=== PATIENT | male | born 1940 | race Caucasian/White ===

== ENCOUNTER 2017-05-29 05:56 | Emergency (ER) | payer MEDICARE, OTHER ==
[~2017-05-29] VITALS: Ht 180.3 cm; Wt 74.8 kg
[~2017-05-29 05:56] MED LIST: ASPI325 PO; DONE10 PO; JALYN 0.5-0.41 EACH; MULTIPLE SUPPLEMENTS
[2017-05-29] MEDS ORDERED: PRAV20 PO (06:19)
[2017-05-29] MEDS ORDERED: Avapro300 MG PO (06:19)
[2017-05-29] MEDS ORDERED: MEMA10 PO (06:19)
[2017-05-29] MEDS ORDERED: LINZESS72 MCG PO (06:20)
[2017-05-29 06:35] LABS: BASOPHILS ABSOLUTE AUTO 0.04 K/mm3 (0.00-0.23); BASOPHILS PERCENT AUTO 1 % (0-2); EOSINOPHILS ABSOLUTE AUTO 0.13 K/mm3 (0.00-0.68); EOSINOPHILS PERCENT AUTO 2 % (0-6); Hematocrit 40.1 % (37.0-53.0); IMMATURE GRAN ABSOLUTE AUTO 0.02 K/mm3 (0.00-0.10); IMMATURE GRAN PERCENT AUTO 0 % (0-1); LYMPHOCYTES ABSOLUTE AUTO 2.15 K/mm3 (0.84-5.20); LYMPHOCYTES PERCENT AUTO 38 % (21-46); MONOCYTES ABSOLUTE AUTO 0.56 K/mm3 (0.16-1.47); MONOCYTES PERCENT AUTO 10 % (4-13); Mean Corpuscular HGB Conc 32.4 g/dL (31.5-36.5); Mean Corpuscular Volume 96 fL (80-100); Mean Platelet Volume 9.8 fL (9.1-12.4); NEUTROPHILS ABSOLUTE AUTO 2.73 K/mm3 (1.96-9.15); NEUTROPHILS PERCENT AUTO 49 % (41-73); Platelet Count 180 K/mm3 (150-400); RDW Coefficient Variation 13.1 % (11.7-14.2); RDW Standard Deviation 46.5 fL (35.1-46.3); White Blood Cell Count 5.63 K/mm3 (4.00-11.30)
[2017-05-29 06:39] LABS: Source, Urine Catheter
[2017-05-29 06:44] LABS: Bilirubin, Urine Neg (Neg); Blood, Urine Neg (Neg); Glucose Qualitative, Urine Neg (Neg); Ketones, Urine Neg (Neg); Leukocyte Esterase, Urine Neg (Neg); Nitrite, Urine Neg (Neg); Protein, Urine Neg (Neg); Specific Gravity, Urine 1.015 (1.003-1.022); Urobilinogen, Urine NORM (Normal)
[2017-05-29 06:49] LABS: Alanine Aminotransfer (ALT/SGP 20 U/L (12-78); Albumin, Blood 3.7 g/dL (3.4-5.0); Alk Phos 77 U/L (50-136); Anion Gap 8 mmol/L (6-16); Aspartate Aminotrans (AST/SGOT 22 U/L (12-37); Bilirubin, Total 0.4 mg/dL (0.1-1.0); Blood Urea Nitrogen 12 mg/dL (8-24); Bun/Creatinine Ratio 12.8 (12.0-20.0); CO2, Blood 30 mmol/L (21-32); Chloride, Blood 106 mmol/L (98-108); Creatinine, Blood 0.94 mg/dL (0.60-1.20); Globulin, Blood 3.7 g/dL (2.2-4.0); Glomerular Filtration Rate >60 (60-); Glucose, Blood 106 mg/dL (70-99); Potassium, Blood 3.9 mmol/L (3.5-5.5); Sodium, Blood 144 mmol/L (136-145); Total Protein, Blood 7.4 g/dL (6.4-8.2); Troponin I <0.015 ng/mL (0.000-0.040)
[2017-05-29 06:51] LABS: Appearance, Urine Clear (Clear); Color, Urine Yellow (P-Yellow)
== END 2017-05-29 09:00 | disposition home or self-care (01) ==
LOC: ER 05:56
PROVIDERS: Emergency Medicine
DX: T65.891A Toxic effect of other specified substances, accidental (unintentional), initial encounter (principal); G92 Toxic encephalopathy; R26.81 Unsteadiness on feet; Z79.82 Long term (current) use of aspirin; Z79.899 Other long term (current) drug therapy
CPT/HCPCS: 70450; 80053; 81003; 84484; 85025; 93005; 93010; 99284

== ENCOUNTER 2017-08-09 13:55 | Emergency (ER) | payer MEDICARE, OTHER ==
[~2017-08-09] VITALS: Ht 175.3 cm; Wt 68.0 kg
[~2017-08-09 13:55] MED LIST changes: +Avapro300 MG PO; +LINZESS72 MCG PO; +MEMA10 PO; +PRAV20 PO
[2017-08-09] MEDS ORDERED: TAMS.4ER PO (14:12)
[2017-08-09] MEDS ORDERED: DUTA.5 PO (14:12)
[2017-08-09] MEDS ORDERED: PRAV20 PO (14:12)
[2017-08-09] MEDS ORDERED: MEMANTINE HCL10 MG PO (14:13)
[2017-08-09] MEDS ORDERED: LINZESS290 MCG PO (14:14)
[2017-08-09] MEDS ORDERED: TOLT4 PO (14:23)
[2017-08-09 14:46] LABS: BASOPHILS ABSOLUTE AUTO 0.03 K/mm3 (0.00-0.23); BASOPHILS PERCENT AUTO 1 % (0-2); EOSINOPHILS ABSOLUTE AUTO 0.13 K/mm3 (0.00-0.68); EOSINOPHILS PERCENT AUTO 2 % (0-6); Hematocrit 40.2 % (37.0-53.0); IMMATURE GRAN ABSOLUTE AUTO 0.03 K/mm3 (0.00-0.10); IMMATURE GRAN PERCENT AUTO 1 % (0-1); LYMPHOCYTES ABSOLUTE AUTO 2.34 K/mm3 (0.84-5.20); LYMPHOCYTES PERCENT AUTO 43 % (21-46); MONOCYTES ABSOLUTE AUTO 0.48 K/mm3 (0.16-1.47); MONOCYTES PERCENT AUTO 9 % (4-13); Mean Corpuscular HGB 31.3 pg (26.0-34.0); Mean Corpuscular HGB Conc 32.3 g/dL (31.5-36.5); Mean Corpuscular Volume 97 fL (80-100); Mean Platelet Volume 9.6 fL (9.1-12.4); NEUTROPHILS ABSOLUTE AUTO 2.45 K/mm3 (1.96-9.15); NEUTROPHILS PERCENT AUTO 45 % (41-73); Platelet Count 212 K/mm3 (150-400); RDW Coefficient Variation 13.2 % (11.7-14.2); Red Blood Cell Count 4.16 M/mm3 (4.30-5.90); White Blood Cell Count 5.46 K/mm3 (4.00-11.30)
[2017-08-09 15:19] LABS: Alanine Aminotransfer (ALT/SGP 22 U/L (12-78); Albumin, Blood 3.9 g/dL (3.4-5.0); Alk Phos 87 U/L (50-136); Anion Gap 5 mmol/L (6-16); Aspartate Aminotrans (AST/SGOT 24 U/L (12-37); Bilirubin, Total 0.4 mg/dL (0.1-1.0); Blood Urea Nitrogen 8 mg/dL (8-24); Bun/Creatinine Ratio 8.6 (12.0-20.0); CO2, Blood 30 mmol/L (21-32); Calcium, Blood 9.4 mg/dL (8.5-10.1); Chloride, Blood 109 mmol/L (98-108); Creatinine, Blood 0.93 mg/dL (0.60-1.20); Glomerular Filtration Rate >60 (60-); Glucose, Blood 88 mg/dL (70-99); Potassium, Blood 3.7 mmol/L (3.5-5.5); Sodium, Blood 144 mmol/L (136-145); Total Protein, Blood 7.9 g/dL (6.4-8.2); Troponin I <0.015 ng/mL (0.000-0.040)
== END 2017-08-09 18:38 | disposition home or self-care (01) ==
LOC: ER 13:55
PROVIDERS: Emergency Medicine
DX: R03.0 Elevated blood-pressure reading, without diagnosis of hypertension (principal); Z79.899 Other long term (current) drug therapy
CPT/HCPCS: 36415; 71046; 80053; 84484; 85025; 93005; 93010; 99283

== ENCOUNTER 2017-11-20 11:39 | Emergency (ER) | payer MEDICARE, OTHER ==
[~2017-11-20] VITALS: Ht 180.3 cm; Wt 77.1 kg
[~2017-11-20 11:39] MED LIST changes: +DUTA.5 PO; +LINZESS290 MCG PO; +MEMANTINE HCL10 MG PO; +TAMS.4ER PO; +TOLT4 PO
[2017-11-20 12:15] LABS: BASOPHILS ABSOLUTE AUTO 0.02 K/mm3 (0.00-0.23); BASOPHILS PERCENT AUTO 0 % (0-2); EOSINOPHILS ABSOLUTE AUTO 0.05 K/mm3 (0.00-0.68); EOSINOPHILS PERCENT AUTO 1 % (0-6); Hematocrit 40.6 % (37.0-53.0); Hemoglobin 13.4 g/dL (13.5-17.5); IMMATURE GRAN ABSOLUTE AUTO 0.02 K/mm3 (0.00-0.10); IMMATURE GRAN PERCENT AUTO 0 % (0-1); LYMPHOCYTES ABSOLUTE AUTO 1.89 K/mm3 (0.84-5.20); LYMPHOCYTES PERCENT AUTO 31 % (21-46); MONOCYTES ABSOLUTE AUTO 0.43 K/mm3 (0.16-1.47); MONOCYTES PERCENT AUTO 7 % (4-13); Mean Corpuscular HGB 31.1 pg (26.0-34.0); Mean Corpuscular Volume 94 fL (80-100); Mean Platelet Volume 9.6 fL (9.1-12.4); NEUTROPHILS ABSOLUTE AUTO 3.77 K/mm3 (1.96-9.15); NEUTROPHILS PERCENT AUTO 61 % (41-73); Platelet Count 199 K/mm3 (150-400); RDW Coefficient Variation 13.2 % (11.7-14.2); RDW Standard Deviation 45.8 fL (35.1-46.3); Red Blood Cell Count 4.31 M/mm3 (4.30-5.90); White Blood Cell Count 6.18 K/mm3 (4.00-11.30)
[2017-11-20 12:37] LABS: Bilirubin, Urine Neg (Neg); Blood, Urine Neg (Neg); Glucose Qualitative, Urine Neg (Neg); Ketones, Urine Neg (Neg); Leukocyte Esterase, Urine Neg (Neg); Nitrite, Urine Neg (Neg); Protein, Urine Neg (Neg); Urobilinogen, Urine NORM (Normal)
[2017-11-20 12:37] LABS: Alanine Aminotransfer (ALT/SGP 16 U/L (12-78); Albumin, Blood 3.6 g/dL (3.4-5.0); Albumin/Globulin Ratio 1.1 (0.8-1.8); Alk Phos 76 U/L (50-136); Anion Gap 7 mmol/L (6-16); Aspartate Aminotrans (AST/SGOT 17 U/L (12-37); Bilirubin, Total 0.6 mg/dL (0.1-1.0); Blood Urea Nitrogen 11 mg/dL (8-24); Bun/Creatinine Ratio 11.5 (12.0-20.0); CO2, Blood 28 mmol/L (21-32); Chloride, Blood 109 mmol/L (98-108); Creatinine, Blood 0.95 mg/dL (0.60-1.20); Globulin, Blood 3.4 g/dL (2.2-4.0); Glomerular Filtration Rate >60 (60-); Glucose, Blood 90 mg/dL (70-99); Potassium, Blood 4.1 mmol/L (3.5-5.5); Sodium, Blood 144 mmol/L (136-145)
[2017-11-20 12:48] LABS: Appearance, Urine Clear (Clear); Color, Urine Yellow (P-Yellow)
== END 2017-11-20 14:04 | disposition home or self-care (01) ==
LOC: ER 11:39
PROVIDERS: Emergency Medicine; Internal Medicine
DX: K59.00 Constipation, unspecified (principal); F03.90 Unspecified dementia, unspecified severity, without behavioral disturbance, psychotic disturbance, mood disturbance, and anxiety; I10 Essential (primary) hypertension; Z79.899 Other long term (current) drug therapy
CPT/HCPCS: 51798; 71046; 74022; 80053; 81003; 85025; 93005; 93010; 96360; 99284-25; J7030

== ENCOUNTER 2019-03-28 10:44 | Emergency (ER) | payer MEDICARE, OTHER ==
[~2019-03-28] VITALS: Ht 177.8 cm; Wt 63.5 kg
[2019-03-28 12:15] LABS: Source, Urine Catheter
[2019-03-28 12:18] LABS: Bilirubin, Urine Neg (Neg); Blood, Urine Neg (Neg); Glucose Qualitative, Urine Neg (Neg); Ketones, Urine 1+ (Neg); Leukocyte Esterase, Urine Neg (Neg); Nitrite, Urine Neg (Neg); Protein, Urine Neg (Neg); Specific Gravity, Urine 1.015 (1.003-1.022); Urobilinogen, Urine NORM (Normal)
[2019-03-28 12:19] LABS: BASOPHILS ABSOLUTE AUTO 0.04 K/mm3 (0.00-0.23); BASOPHILS PERCENT AUTO 0 % (0-2); EOSINOPHILS PERCENT AUTO 0 % (0-6); Hematocrit 38.2 % (37.0-53.0); Hemoglobin 12.5 g/dL (13.5-17.5); IMMATURE GRAN ABSOLUTE AUTO 0.03 K/mm3 (0.00-0.10); IMMATURE GRAN PERCENT AUTO 0 % (0-1); LYMPHOCYTES ABSOLUTE AUTO 0.85 K/mm3 (0.84-5.20); LYMPHOCYTES PERCENT AUTO 10 % (21-46); MONOCYTES ABSOLUTE AUTO 0.78 K/mm3 (0.16-1.47); MONOCYTES PERCENT AUTO 9 % (4-13); Mean Corpuscular HGB 31.6 pg (26.0-34.0); Mean Corpuscular HGB Conc 32.7 g/dL (31.5-36.5); Mean Corpuscular Volume 97 fL (80-100); Mean Platelet Volume 9.9 fL (9.1-12.4); NEUTROPHILS ABSOLUTE AUTO 7.28 K/mm3 (1.96-9.15); NEUTROPHILS PERCENT AUTO 81 % (41-73); Platelet Count 188 K/mm3 (150-400); RDW Coefficient Variation 13.1 % (11.7-14.2); RDW Standard Deviation 46.5 fL (35.1-46.3); Red Blood Cell Count 3.95 M/mm3 (4.30-5.90); White Blood Cell Count 8.98 K/mm3 (4.00-11.30)
[2019-03-28 12:28] LABS: Appearance, Urine Clear (Clear); Color, Urine Yellow (P-Yellow)
[2019-03-28 12:41] LABS: Alanine Aminotransfer (ALT/SGP 22 U/L (12-78); Albumin, Blood 3.7 g/dL (3.4-5.0); Alk Phos 88 U/L (50-136); Anion Gap 4 mmol/L (6-16); Aspartate Aminotrans (AST/SGOT 24 U/L (12-37); Bilirubin, Total 0.5 mg/dL (0.1-1.0); Blood Urea Nitrogen 14 mg/dL (8-24); Bun/Creatinine Ratio 13.2 (12.0-20.0); CO2, Blood 26 mmol/L (21-32); Chloride, Blood 110 mmol/L (98-108); Creatinine, Blood 1.06 mg/dL (0.60-1.20); Globulin, Blood 3.6 g/dL (2.2-4.0); Glomerular Filtration Rate >60 (60-); Glucose, Blood 130 mg/dL (70-99); Potassium, Blood 4.1 mmol/L (3.5-5.5); Sodium, Blood 140 mmol/L (136-145); Total Protein, Blood 7.3 g/dL (6.4-8.2)
== END 2019-03-28 13:45 | disposition home or self-care (01) ==
LOC: ER 10:44
PROVIDERS: Emergency Medicine
DX: F03.90 Unspecified dementia, unspecified severity, without behavioral disturbance, psychotic disturbance, mood disturbance, and anxiety (principal); Z79.899 Other long term (current) drug therapy; W19.XXXA Unspecified fall, initial encounter
CPT/HCPCS: 51701; 80053; 81003; 85025; 99284-25

== ENCOUNTER 2019-06-04 12:32 | Observation (INO) | payer MEDICARE, OTHER ==
[~2019-06-04] VITALS: Ht 172.7 cm; Wt 55.3 kg
[2019-06-04] MEDS ORDERED: OXYB5 PO (12:46)
[2019-06-04] MEDS ORDERED: AMLODIPINE BESY10 MG PO (12:46)
[2019-06-04] MEDS ORDERED: PROZAC40 MG PO (12:48)
[2019-06-04 13:22] LABS: BASOPHILS ABSOLUTE AUTO 0.02 K/mm3 (0.00-0.23); BASOPHILS PERCENT AUTO 0 % (0-2); EOSINOPHILS ABSOLUTE AUTO 0.01 K/mm3 (0.00-0.68); EOSINOPHILS PERCENT AUTO 0 % (0-6); Hemoglobin 12.9 g/dL (13.5-17.5); IMMATURE GRAN ABSOLUTE AUTO 0.05 K/mm3 (0.00-0.10); IMMATURE GRAN PERCENT AUTO 1 % (0-1); LYMPHOCYTES ABSOLUTE AUTO 1.13 K/mm3 (0.84-5.20); LYMPHOCYTES PERCENT AUTO 13 % (21-46); MONOCYTES ABSOLUTE AUTO 0.73 K/mm3 (0.16-1.47); MONOCYTES PERCENT AUTO 8 % (4-13); Mean Corpuscular HGB 31.7 pg (26.0-34.0); Mean Corpuscular HGB Conc 33.1 g/dL (31.5-36.5); Mean Corpuscular Volume 96 fL (80-100); NEUTROPHILS ABSOLUTE AUTO 7.09 K/mm3 (1.96-9.15); NEUTROPHILS PERCENT AUTO 79 % (41-73); Platelet Count 237 K/mm3 (150-400); RDW Coefficient Variation 12.9 % (11.7-14.2); RDW Standard Deviation 45.5 fL (35.1-46.3); Red Blood Cell Count 4.07 M/mm3 (4.30-5.90); White Blood Cell Count 9.03 K/mm3 (4.00-11.30)
[2019-06-04 13:32] LABS: Alanine Aminotransfer (ALT/SGP 23 U/L (12-78); Albumin, Blood 3.5 g/dL (3.4-5.0); Albumin/Globulin Ratio 0.9 (0.8-1.8); Alk Phos 89 U/L (50-136); Anion Gap 4 mmol/L (6-16); Aspartate Aminotrans (AST/SGOT 22 U/L (12-37); Bilirubin, Total 0.4 mg/dL (0.1-1.0); Blood Urea Nitrogen 16 mg/dL (8-24); Bun/Creatinine Ratio 15.1 (12.0-20.0); CO2, Blood 31 mmol/L (21-32); Calcium, Blood 9.6 mg/dL (8.5-10.1); Chloride, Blood 106 mmol/L (98-108); Creatinine, Blood 1.06 mg/dL (0.60-1.20); Globulin, Blood 3.7 g/dL (2.2-4.0); Glomerular Filtration Rate >60 (60-); Glucose, Blood 94 mg/dL (70-99); Sodium, Blood 141 mmol/L (136-145); Total Protein, Blood 7.2 g/dL (6.4-8.2); Troponin I <0.015 ng/mL (0.000-0.040)
[2019-06-04 14:48] LABS: Source, Urine Voided
[2019-06-04 14:50] LABS: Bilirubin, Urine Neg (Neg); Blood, Urine Neg (Neg); Glucose Qualitative, Urine Neg (Neg); Ketones, Urine 1+ (Neg); Leukocyte Esterase, Urine Neg (Neg); Nitrite, Urine Neg (Neg); Protein, Urine 1+ (Neg); Urobilinogen, Urine NORM (Normal)
[2019-06-04 15:01] LABS: Appearance, Urine Clear (Clear); Color, Urine Yellow (P-Yellow)
--- NOTE | 2019-06-04 18:30 | NUR ---
Assume [facility] Pt admitted from ER to room 325. Received report from KEVIN Lester. Pt arrived via stretcher and used slider sheet to slide over x 2 assist. Pt slow to respond, follows direction well, at bedside during arrival. Pt settled to room, call light near, bed in lowest position. Will report to oncoming night nurse.
--- NOTE | 2019-06-04 21:26 | NUR ---
XFER'D TO [id number] -REPORT GIVEN TO ASSUMING RN, AALIYAH; CALL PLACED TO MAXINE ([phone]) @ [phone].
--- NOTE | 2019-06-04 21:58 | NUR ---
ASSUMED CARE OF PT. TX'D OVER TO CLEAN BED. PT. REPOSITIONED FOR COMFORT. APPEARS TO BE RESTING COMFORTABLY IN BED, NO APPARENT DISTRESS NOTED. IV FLUIDS INFUDING. CALL LIGHT WITHIN REACH, SIDE RAILS UP X3, AND BED ALARM ON FOR SAFETY. WILL CONT TO MONITOR.
--- NOTE | 2019-06-05 04:55 | NUR ---
SHIFT SUMMARY- PT. NEW ADMISSION WITH INCREASING WEAKNESS AND FREQUENT FALLS AT HOME. PT. PLEASANTLY CONFUSED, INCONTINENT, ATTENDS IN PLACE. ATTEMPTED TO GET OOB 2X. BED ALARM SET FOR SAFETY. PT. C/O PAIN TO THE RT SIDE. MEDICATED W/TYLENOL PER EMAR WITH GOOD RELIEF. RESTED COMFORTABLY T/O THE SHIFT. NO APPARENT DISTRESS NOTED. CALL LIGHT WITHIN REACH, SIDE RAILS UP X2, AND BED IN LOW POSITION. WILL CONT TO MONITOR.
[2019-06-05 05:44] LABS: Alanine Aminotransfer (ALT/SGP 21 U/L (12-78); Albumin/Globulin Ratio 0.9 (0.8-1.8); Alk Phos 81 U/L (50-136); Anion Gap 6 mmol/L (6-16); Aspartate Aminotrans (AST/SGOT 23 U/L (12-37); Bilirubin, Total 0.4 mg/dL (0.1-1.0); Blood Urea Nitrogen 12 mg/dL (8-24); Bun/Creatinine Ratio 16.3 (12.0-20.0); CO2, Blood 27 mmol/L (21-32); Calcium, Blood 8.7 mg/dL (8.5-10.1); Chloride, Blood 108 mmol/L (98-108); Creatinine, Blood 0.74 mg/dL (0.60-1.20); Globulin, Blood 3.4 g/dL (2.2-4.0); Glomerular Filtration Rate >60 (60-); Glucose, Blood 85 mg/dL (70-99); Potassium, Blood 3.8 mmol/L (3.5-5.5); Sodium, Blood 141 mmol/L (136-145); Total Protein, Blood 6.4 g/dL (6.4-8.2)
--- NOTE | 2019-06-05 13:23 | NUR ---
Pt resting in chair eating his lunch upon arrival. Pt is A&OX1. Pt denies pain at this time. Pt difficult to understand and attempts to respond with one to two word sentences. Pt appears comfortable with no S/S of distress at this time. Spoke with Bedside RN Edmundo and discussed case. Pt requires assistance with transfers, is a 2 person assist with ambulation and walker, assistance with bathing, dressing, feeding, and is incontinent. Called and spoke with Pt's Myra. Engaged in therapeutic discussion regarding goals of care. Listened as Myra expresses concerns regarding her ability to care for Pt. Instructed Myra caremanagement will be in contact and can assist with these concerns. Discussed hospice and educated on hospice philosophy. Myra expresses interest with hospice and is agreeable with continued conversation when she arrives to hospital to visit Pt. Pt's medical history and comorbidities include: Advanced Dementia, Carotid Artery Stenosis, BPH, HTN,Hyperlipidemia, and Hypothyroidism. Pt unable to have meaningful conversation and has greater than 30 pound weight loss in the last year. PPS 40% Karnofsky 40% ADLs 6/6 FAST 7C Pt appears appropriate for hospice and would benefit from hospice intake nurse for further evaluation. Palliative Care will remain available.
--- NOTE | 2019-06-05 17:40 | NUR ---
PERMISSION THE PATIENT GAVE PERMISSION TO BE INVOLVED IN HIS CARE DURING CLINICAL TIME ON 06/06/2019
--- NOTE | 2019-06-05 17:57 | NUR ---
SUMMARY PT SITTING UP IN BED EATING DINNER, SPOUSE IS AT THE BEDSIDE, PT HAS BEEN CONFUSED AND DIFFICULT TO REDIRECT T/O THE DAY, ATTEMPTED TO GET OOB SEVERAL TIMES, BED ALARM ON FOR SAFETY, PT WORKED WITH PT/OT, HAS BEEN UP TO THE CHAIR SEVERAL TIMES, PT INCONTINENT OF BOWEL AND BLADDER, OFTEN NEEDS TO BE FED, PT HAS A RED AREA TO HIS COCCYX, FOAM PREVENTION DRESSING REMOVED DUE TO CONSTANT NEED TO BE CHANGED, BARRIER CREAM APPLIED IN PLACE OF IT, WILL CONT TO MONITOR
--- NOTE | 2019-06-05 23:59 | NUR ---
PT. VERY AGITATED ATTEMPTING TO GET OOB. PT. HAS HX OF MULTIPLE FALLS AT HOME. PT. ALSO DEVELOPED FEVER OF 102.3. NOTIFIED SRIKANTH WALLS CHEST PAIN COORDINATOR. SEE NEW ORDERS. WILL CONT TO MONITOR.
[2019-06-06 00:43] LABS: BASOPHILS ABSOLUTE AUTO 0.02 K/mm3 (0.00-0.23); BASOPHILS PERCENT AUTO 0 % (0-2); EOSINOPHILS ABSOLUTE AUTO 0.01 K/mm3 (0.00-0.68); EOSINOPHILS PERCENT AUTO 0 % (0-6); Hematocrit 37.8 % (37.0-53.0); Hemoglobin 12.5 g/dL (13.5-17.5); IMMATURE GRAN ABSOLUTE AUTO 0.05 K/mm3 (0.00-0.10); IMMATURE GRAN PERCENT AUTO 0 % (0-1); LYMPHOCYTES ABSOLUTE AUTO 1.58 K/mm3 (0.84-5.20); LYMPHOCYTES PERCENT AUTO 13 % (21-46); MONOCYTES ABSOLUTE AUTO 1.17 K/mm3 (0.16-1.47); MONOCYTES PERCENT AUTO 10 % (4-13); Mean Corpuscular HGB 31.2 pg (26.0-34.0); Mean Corpuscular HGB Conc 33.1 g/dL (31.5-36.5); Mean Corpuscular Volume 94 fL (80-100); Mean Platelet Volume 9.7 fL (9.1-12.4); NEUTROPHILS ABSOLUTE AUTO 9.34 K/mm3 (1.96-9.15); NEUTROPHILS PERCENT AUTO 77 % (41-73); Platelet Count 227 K/mm3 (150-400); RDW Coefficient Variation 12.2 % (11.7-14.2); RDW Standard Deviation 42.6 fL (35.1-46.3); Red Blood Cell Count 4.01 M/mm3 (4.30-5.90); White Blood Cell Count 12.17 K/mm3 (4.00-11.30)
[2019-06-06 01:01] LABS: Alanine Aminotransfer (ALT/SGP 22 U/L (12-78); Albumin, Blood 3.3 g/dL (3.4-5.0); Albumin/Globulin Ratio 0.9 (0.8-1.8); Alk Phos 81 U/L (50-136); Anion Gap 9 mmol/L (6-16); Aspartate Aminotrans (AST/SGOT 32 U/L (12-37); Bilirubin, Total 0.5 mg/dL (0.1-1.0); Blood Urea Nitrogen 16 mg/dL (8-24); Bun/Creatinine Ratio 16.4 (12.0-20.0); CO2, Blood 24 mmol/L (21-32); Chloride, Blood 103 mmol/L (98-108); Creatinine, Blood 0.98 mg/dL (0.60-1.20); Globulin, Blood 3.6 g/dL (2.2-4.0); Glomerular Filtration Rate >60 (60-); Glucose, Blood 117 mg/dL (70-99); Potassium, Blood 4.3 mmol/L (3.5-5.5); Sodium, Blood 136 mmol/L (136-145); Total Protein, Blood 6.9 g/dL (6.4-8.2)
--- NOTE | 2019-06-06 07:06 | NUR ---
SHIFT SUMMARY- PT. AGITATED LAST NIGHT, ATTEMPTING SEVERAL TIMES TO GET OOB. PT. IS AT HIGH RISK FOR FALLS WITH RECENT MULTIPLE FALLS AT HOME. SID VEST PLACED PER ORDER. PT. ALSO DEVELOPED TEMP OF 101.3-101.4 DURING THE NIGHT. MEDICATED WITH TYLENOL PER EMAR WITH MINIMAL EFFECT. PT. TEMP STILL ELEVATED. ORDER RECEIVED TO TREAT W/IBUPROFEN FOR BETTER EFFECT. PT. WAS ABLE TO FALL ASLEEP AFTER MEDICATION GIVEN, TEMP AND VSS. RECEIVED CALL FROM THIS AM WITH CONCERNS OF PT. HAVING THE SHAKES. STATED THOUGHT SX'S DUE TO MEDICATION PT. CURRENTLY ON AND REQUESTED FOR SCHEDULED MED TO BE HELD. INFORMED AM RN PT. REQUESTING FOR AM MEDS TO BE HELD DUE TO CONCERN OF POSSIBLE ALLERGY. PT. APPEARS TO BE RESTING COMFORTABLY IN BED, NO APPARENT DISTRESS NOTED.
--- NOTE | 2019-06-06 10:40 | NUR ---
Pt resting in bed and appears painful as evidenced by moaning, grimacing, and shaking of extremities. Pt is pleasantly confused. Spoke with Bedside RN Edmundo, discussed case, and reviewed medications. Edmundo will offer Pt pain medication. Called and left message with Pt's with request for a return phone call. Plan is to discuss goals of care further with when she visits Pt.
--- NOTE | 2019-06-06 11:25 | NUR ---
DHS WORKER CONNER WILDE FROM [facility] HERE TO SEE PT, CARD LEFT WITH NUMBER VOICE:[phone] CELL:[phone]
--- NOTE | 2019-06-06 17:02 | NUR ---
Pt resting in bed upon arrival. Pt's Myra at bedside expressing concerns with Pt showing mild tremors and red face. Myra expresses concerns and feels the pyridium may be causing these symptoms. Pyridium not given this morning per 's request. Suggested symptoms may be related to pain. Reviewed medications with KEVIN Pimentel and she will offer Ibuprofen. Discussed goals of care with Pt's Myra including hospice. Educated on hospice philosophy with V/U made by Myra. Myra is agreeable with hospice services upon discharge. Discussed placing Pt on comfort care as an option during Pt's hospital stay. Myra reports wishes to discuss further with daughter before making this decision. Received verbal consent from Myra to call daughter. Called and left a message with Dr Ku regarding Pt's symptoms, 's concerns and goals of care discussed. Palliative Care will call daugher and include in discussion regarding goals of care.
--- NOTE | 2019-06-06 17:33 | NUR ---
Called and spoke with Pt's daughter Michaela. Engaged in therapeutic discussion regarding goals of care. Michaela reports being in agreement for hospice upon discharge. Michaela reports she will have further discussions with her mom (Pt's Myra) regarding the option of placing Pt on comfort care during his hospital stay. Instructed on hospice agencies to choose from. Instructed to have bedside RN contact Palliative Care when she and Myra arrive tomorrow to visit. Palliative Care will remain available.
--- NOTE | 2019-06-06 17:47 | NUR ---
SUMMARY PT RESTING IN BED, RESTRAINTS REMAIN ON FOR SAFETY, PT PLEASANTLY CONFUSED, DOES NOT FOLLOW COMMANDS CONSISTENTLY, SPOUSE HAS BEEN IN TO VISIT SEVERAL TIMES, VSS, WILL CONT TO MONITOR
[2019-06-07 05:18] LABS: BASOPHILS ABSOLUTE AUTO 0.03 K/mm3 (0.00-0.23); BASOPHILS PERCENT AUTO 0 % (0-2); EOSINOPHILS ABSOLUTE AUTO 0.12 K/mm3 (0.00-0.68); EOSINOPHILS PERCENT AUTO 1 % (0-6); Hematocrit 35.2 % (37.0-53.0); Hemoglobin 11.7 g/dL (13.5-17.5); IMMATURE GRAN ABSOLUTE AUTO 0.04 K/mm3 (0.00-0.10); IMMATURE GRAN PERCENT AUTO 0 % (0-1); LYMPHOCYTES ABSOLUTE AUTO 1.37 K/mm3 (0.84-5.20); LYMPHOCYTES PERCENT AUTO 14 % (21-46); MONOCYTES ABSOLUTE AUTO 0.61 K/mm3 (0.16-1.47); MONOCYTES PERCENT AUTO 6 % (4-13); Mean Corpuscular HGB 31.3 pg (26.0-34.0); Mean Corpuscular HGB Conc 33.2 g/dL (31.5-36.5); Mean Corpuscular Volume 94 fL (80-100); Mean Platelet Volume 10.4 fL (9.1-12.4); NEUTROPHILS ABSOLUTE AUTO 7.48 K/mm3 (1.96-9.15); NEUTROPHILS PERCENT AUTO 78 % (41-73); Platelet Count 188 K/mm3 (150-400); RDW Coefficient Variation 12.8 % (11.7-14.2); RDW Standard Deviation 44.2 fL (35.1-46.3); Red Blood Cell Count 3.74 M/mm3 (4.30-5.90); White Blood Cell Count 9.65 K/mm3 (4.00-11.30)
[2019-06-07 05:35] LABS: Anion Gap 7 mmol/L (6-16); Blood Urea Nitrogen 21 mg/dL (8-24); Bun/Creatinine Ratio 23.4 (12.0-20.0); CO2, Blood 27 mmol/L (21-32); Calcium, Blood 8.6 mg/dL (8.5-10.1); Chloride, Blood 106 mmol/L (98-108); Glomerular Filtration Rate >60 (60-); Glucose, Blood 81 mg/dL (70-99); Potassium, Blood 3.5 mmol/L (3.5-5.5); Sodium, Blood 140 mmol/L (136-145)
--- NOTE | 2019-06-07 06:46 | NUR ---
SHIFT SUMMARY PATIENT ALERT AND ORIENTED X 1. VERY PLEASANT TO WORK WITH. SLEPT WELL ALL NIGHT WITH AN EYE MASK ON TO BLOCK OUT THE LIGHTS. STAYED IN BED ALL NIGHT. IV PATENT AND FLUSHED. BED IN LOWEST POSITION WITH WHEELS LOCKED AND ALARM ON. CALL LIGHT WITHIN REACH. REPORT GIVEN TO ONCOMING RN.
--- NOTE | 2019-06-07 18:45 | NUR ---
Initial spiritual care note: Family is well-known to me from community. , Myra, quite tearful. Dtr, Michaela, appears to be a stable resource. Facilitated Myra's exploration of fears and grief. Provided gentle job counselor. She appears to be coming to terms with idea of hospice, but is very fearful of losing her home to pay for it. Advised speaking to discharge-store planner for guidence on this. Prayer and spiritual direction was well-recieved. Ashwin sat happily in chair and seemed oblivious to discussion. Director Global Intelligence services will remain available.
--- NOTE | 2019-06-07 19:06 | NUR ---
alert, aware of location, self, family and season, call light in reach, rm air, no IV, bsr shared with [facility] staff, no acute changes noted in condition
--- NOTE | 2019-06-08 06:55 | NUR ---
SHIFT SUMMARY PATIENT PLEASANT BUT CONFUSED OVERNIGHT. OLD IV REMOVED FROM LEFT HAND AND NEW IV PLACED IN HIS LEFT FOREARM. HAS BEEN ATTEMPTING TO GET OUT OF BED TOWARDS THE END OF THE SHIFT. BED IN LOWEST POSITION WITH WHEELS LOCKED AND ALARM ON. CALL LIGHT WITHIN REACH. REPORT GIVEN TO ONCOMING RN.
--- NOTE | 2019-06-08 09:12 | NUR ---
alert compliant orintated to self, not sure why or where he is, compliant with care, repositioned and fed, report received from [facility] nurse, pallialtive care asked for call when showed up, will continue to monitor and treat as appropriate
--- NOTE | 2019-06-08 15:34 | NUR ---
Met with Myra in Ashwin's room this afternoon. He is pleasant and alert, but only oriented to himself. Myra reports that she met with [facility] staff and that it will cost $6000/month (at first she said $6000/day) which she cannot afford. She is tearful and states she has to find some place for him to go but is unsure of what to do now that she discovered [facility] is not affordable for them. She is unable to care for him at home any longer. She appears tired and is not always stable on her feet. Ashwin is a but has never enrolled for care at the [facility]. Myra reports she went to the [facility] and rec'd paperwork to fill out and states that Ashwin needs to sign it. She states she tried to have him sign the paperwork earlier in the week but "He wasn't interested in writing that day and wouldn't do it." Spoke with Marty in who reports that once he is enrolled in the [facility] system that will open opportunities for hospice care in a facility. Explained to Myra that she will need to have Ashwin sign the papers as best he can and take them to the eligibilty office at the [facility]. She states that she will bring the paperwork in tomorrow when she visits for him to sign. Ashwin is resting in bed without complaint. PC will follow up as needed for symptom managment.
--- NOTE | 2019-06-08 19:18 | NUR ---
alert but confused, call light in reach bed alarm on, lowest position but head raised on bed, repositioned and changed multiple times during shift, monitored or fed meals, ate everything on tray and tried to eat a bottle of body cream
--- NOTE | 2019-06-09 04:20 | NUR ---
SHIFT SUMMARY PT HAS HAD NO ACUTE CHANGES THIS SHIFT, HAS BEEN COOPERATIVE W/CARE, ANXIOUS AND FIDGETY FOR 1ST FEW HOURS OF SHIFT, ATIVAN ADMIN @ 2330 AND PT SLEPT T/O SHIFT, PT APPEARS TO BE SLEEPING COMFORTABLY AT THIS TIME, WILL CONT TO MONITOR UNTIL REPORT GIVEN TO DAY RN.
[2019-06-09 11:57] LABS: BASOPHILS ABSOLUTE AUTO 0.02 K/mm3 (0.00-0.23); BASOPHILS PERCENT AUTO 0 % (0-2); EOSINOPHILS ABSOLUTE AUTO 0.02 K/mm3 (0.00-0.68); EOSINOPHILS PERCENT AUTO 0 % (0-6); Hematocrit 36.9 % (37.0-53.0); IMMATURE GRAN ABSOLUTE AUTO 0.04 K/mm3 (0.00-0.10); IMMATURE GRAN PERCENT AUTO 0 % (0-1); LYMPHOCYTES ABSOLUTE AUTO 1.07 K/mm3 (0.84-5.20); LYMPHOCYTES PERCENT AUTO 10 % (21-46); MONOCYTES ABSOLUTE AUTO 0.77 K/mm3 (0.16-1.47); MONOCYTES PERCENT AUTO 7 % (4-13); Mean Corpuscular HGB 30.9 pg (26.0-34.0); Mean Corpuscular HGB Conc 32.5 g/dL (31.5-36.5); Mean Corpuscular Volume 95 fL (80-100); Mean Platelet Volume 9.8 fL (9.1-12.4); NEUTROPHILS PERCENT AUTO 82 % (41-73); Platelet Count 232 K/mm3 (150-400); RDW Standard Deviation 44.7 fL (35.1-46.3); Red Blood Cell Count 3.88 M/mm3 (4.30-5.90); White Blood Cell Count 10.82 K/mm3 (4.00-11.30)
[2019-06-09 12:37] LABS: Alanine Aminotransfer (ALT/SGP 32 U/L (12-78); Albumin, Blood 2.9 g/dL (3.4-5.0); Albumin/Globulin Ratio 0.8 (0.8-1.8); Alk Phos 68 U/L (50-136); Anion Gap 8 mmol/L (6-16); Aspartate Aminotrans (AST/SGOT 37 U/L (12-37); Bilirubin, Total 0.4 mg/dL (0.1-1.0); Blood Urea Nitrogen 24 mg/dL (8-24); Bun/Creatinine Ratio 28.1 (12.0-20.0); CO2, Blood 28 mmol/L (21-32); Calcium, Blood 8.9 mg/dL (8.5-10.1); Chloride, Blood 107 mmol/L (98-108); Creatinine, Blood 0.86 mg/dL (0.60-1.20); Globulin, Blood 3.5 g/dL (2.2-4.0); Glomerular Filtration Rate >60 (60-); Glucose, Blood 120 mg/dL (70-99); Potassium, Blood 3.9 mmol/L (3.5-5.5); Sodium, Blood 143 mmol/L (136-145); Total Protein, Blood 6.4 g/dL (6.4-8.2)
[2019-06-09 17:17] LABS: Source, Urine Catheter
[2019-06-09 17:34] LABS: Bilirubin, Urine Neg (Neg); Blood, Urine Neg (Neg); Glucose Qualitative, Urine Neg (Neg); Ketones, Urine 1+ (Neg); Leukocyte Esterase, Urine 1+ (Neg); Nitrite, Urine Neg (Neg); Protein, Urine 2+ (Neg); Specific Gravity, Urine 1.015 (1.003-1.022); Urobilinogen, Urine NORM (Normal)
[2019-06-09 17:36] LABS: Appearance, Urine Clear (Clear); Color, Urine Yellow (P-Yellow)
[2019-06-09 17:47] LABS: Amorphous Light (0-Heavy); Bacteria Few /hpf; Mucus Mod (0-Heavy); Red Blood Cells, Urine 0-2 /hpf (0-2); Squamous Epithelial Cells Rare /hpf (Few); White Blood Cells, Urine 0-2 /hpf (0-5)
--- NOTE | 2019-06-09 18:03 | NUR ---
SHIFT SUMMARY UP IN CHAIR FOR BREAKFAST AND LUNCH. GOTTEN UP WITH A LIFT. AT BEDSIDE ON AND OFF TODAY. HAD A FEVER TODAY AND TREATED WITH TYLENOL AND IBUPROFEN. EATING IMPROVED AND WAS FEEDING HIMSELF SUPPER. SMILES AND OPENS HIS EYES AND SPEAKS TO STAFF BUT NOT ALWAYS UNDERSTOOD.
--- NOTE | 2019-06-10 05:17 | NUR ---
SHIFT SUMMARY PT HAS BEEN MORE SOMNOLENT THIS SHIFT, SLEPT T/O NIGHT, CALL LIGHT IN REACH, WILL CONT TO MONITOR UNTIL REPORT GIVEN TO DAY RN.
--- NOTE | 2019-06-10 17:33 | NUR ---
SHIFT SUMMARY PTS AT BEDSIDE TODAY ON AND OFF. NO FEVERS TODAY. REQUESTING URINAL SEVERAL TIMES WITH VOIDING SMALL AMOUNTS. BLADDER SCAN COMPLETED AND LESS THAN 100ML NOTED. TURNED AND CHANGED SEVERAL TIMES. WILL REPORT CONDITION TO ONCOMING SHIFT.
--- NOTE | 2019-06-11 04:03 | NUR ---
SHIFT SUMMARY PT HAS HAD NO ACUTE CHANGES THIS SHIFT, NO C/O ANY KIND, PT REMAINED AWAKE AND CONTINUALLY ATTEMPTED TO GET OUT OF BED SETTING OFF BED ALARM, AT 0135 ADMIN ATIVAN AND ADVIL, PT FINALLY RELAXED AND SLEPT T/O REMAINER OF SHIFT, PT SLEEPING AT THIS TIME, CALL LIGHT IN REACH, WILL CONT TO MONITOR UNTIL REPORT GIVEN TO DAY RN.
--- NOTE | 2019-06-11 15:45 | NUR ---
Met with pt's dtr and in his room. Ashwin slept through the visit today. Pt's , Myra, dropped off the paperwork at the eligibility office at the [facility] this afternoon. and dtr had questions re: comfort care and what that would look like in the hospital. Explained comfort care and answered questions. Provided them with information re: comfort care and the considering comfort care booklet. They would like to start comfort care today. Nursing notified. Spoke with Dr. Dillon and rec'd a verbal order to enter comfort care order set. Will d/c lovenox as pt is transitioning to comfort care. Made Micheal chocolate boost milkshake per his family's request. Discharge planning is in process. [facility] is currently not accepting any pts at this time and pt's is no longer able to care for him at home. Awaiting placement for hospice services. Vivek slept through today's visit, he appears comfortable at this time. PC will continue to be available as needed.
--- NOTE | 2019-06-11 18:50 | NUR ---
Routine spiritual care note: I met with Ashwin's spouse, Myra, and dtr, Michaela. After lengthy conversation about Ashwin's decline, I spoke to them about "comfort measures" while he is hospitalized. Myra thought pt was already on comfort measures as he will be discharged on hospice services. Both women were upset and tearful. They calmed considerably with gentle chromosomal disorders counselor, theraputic listening, and emotional affirmation. Facilitated prayer at bedside for peaceful transition. I will remain available.
--- NOTE | 2019-06-11 19:46 | NUR ---
SHIFT SUMMARY- PALLIATIVE CARE AND SPIRITUAL CARE CAME TO SEE THE PT AND SPOKE TO HIS DAUGHTER AND SPOUSE, THE DECISION WAS MADE TO MAKE THE PT COMFORT CARE THIS EVENING. COMFORT CARE ORDERS IN THE COMPUTER NOT YET ACKNOWLEDGED, PASSED ON TO NIGHT KEVIN CASTELAN IN BEDSIDE REPORT.
--- NOTE | 2019-06-12 04:33 | NUR ---
SUMMARY PT HAS BEEN MEDICATED FOR COMFORT. PT HAS BEEN CHANGED AND REPOSITIONED NEEDED. PT HAS SLEPT WELL. CALL LIGHT IN REACH, BED ALARM ON.
--- NOTE | 2019-06-12 17:52 | NUR ---
PT STARTED SHIFT WERE I COULD GET HIM TO OPEN EYES AND TAKE HIS ONE SCHEDULED MEDICATION,BUT WAS VERY TIRED AND SOMNOLENT. THE MORNING PROGRESSED PT WOULD NO LONGER OPEN UP HIS EYES. FAMILY WAS CALLED PT IS APPEARING TO DECLINE TODAY. FAMILY HAS BEEN AT BED SIDE AND PT IS BEING KEEP COMFORTABLE PER EMAR. WILL CONTINUE TO MONITOR.
--- NOTE | 2019-06-12 18:31 | NUR ---
Routine spiritual care note: Ashwin declined over-night. He is no longer responsive. Breathing pattern has changed with shallow breaths and pauses. I called spouse and dtr who came immediately. Provided gentle nearing education, student support counselor and prayer to good effect. I will remain available.
--- NOTE | 2019-06-13 03:44 | NUR ---
SUMMARY PT LESS ALERT THIS SHIFT. PT RESPONDS SOME OF THE TIME. PT MEDICATED NEEDED. PT CHANGED AND REPOSITIONED NEED. CALL LIGHT IN REACH, BED ALARM ON.
--- NOTE | 2019-06-13 08:00 | NUR ---
MORNING ASSESSMENT: PATIENT RESTING IN THE BED WITH AND DAUGHTER AT THE BEDSIDE. PATIENT IS SLEEPING SOUNDLY. PATIENT'S FACE AND LIMBS ARE RELAXED. RESPIRATIONS ARE CALM AND EVEN AT 16/MIN. NO SIGNS OR SYMPTOMS OF PAIN. BRIEF IS CLEAN AND DRY. FAMILY DENIES NEEDS AT THIS TIME.
--- NOTE | 2019-06-13 10:22 | NUR ---
UPDATE PATIENT EXPERIENCED SOME SHAKING IN LIMBS. MEDICATED PER EMAR WITH ATIVAN. PATIENT NOW RESTING COMFORTABLY WITH FAMILY AT THE BEDSIDE. PATIENT HAD A PAUSE IN BREATHING FOR ABOUT 5 SECONDS. NO SIGNS OF STRUGGLING TO BREATH.
--- NOTE | 2019-06-13 13:08 | NUR ---
Pt resting in bed with his eyes closed and is snoring. Pt appears comfortable with no S/S of distress at this time. Pt's and daughter at bedside. Answered questions and concerns. Educated family on symptoms Pt may experience with V/U made by family. No other concerns reported at this time. Palliative Care will remain available.
--- NOTE | 2019-06-13 18:41 | NUR ---
END OF SHIFT SUMMARY: PATIENT PAIN AND AGITATION CONTROLLED TODAY WITH PRN MEDICATIONS. PATIENT WAS EXPERIENCING 5-10 SECOND APNEIC PERIODS BY THE END OF THE SHIFT. PATIENT'S AND DAUGHTER AT BEDSIDE MOST OF THE SHIFT. DISCUSSED WITH THEM THAT THIS MAY BE A SIGN THAT THE PATIENT IS TRANSITIONING. PATIENT'S EXPRESSED CONCERNS ABOUT NEEDING TO MOVE THE PATIENT TO A FACILITY TO PASS. DISCUSSED WITH CARE MANAGEMENT, THEY ARE AWARE OF THIS CONCERN.
--- NOTE | 2019-06-13 19:19 | NUR ---
Ashwin is non-responsive. I met with spouse and dtr at bedside. They appear emotionally and physically exhausted. Provided prayer and encourged self-care. This afternoon, I sat with Ashwin alone in room. Breaths irregular with long pauses. He appears very close to end of life. Held his hand andprayer for peaceful transition. I will remain available to family.
--- NOTE | 2019-06-14 05:31 | NUR ---
WET INSPECTOR OPTICAL GLASS SUMMARY NO ACUTE CHANGES. CONTINUES ON COMFORT CARE. PT NON RESPONSIVE AND HAS BEEN SLEEPING THROUGH THE NIGHT. OCCASIONAL APNEIC PAUSES. MEDICATED WITH ROXANOL 20 MG PER EMAR. PT SEEMS TO SHOW PAIN/RESTLESSNESS BY SHAKING HIS LEGS SLIGHTLY IN BED AND DOES QUIETLY MOAN AT TIMES. WILL CONTINUE TO MONITOR UNTIL DAY SHIFT RN ASSUMES CARE.
--- NOTE | 2019-06-14 15:24 | NUR ---
Comfort Care Visit: Pt resting in bed with his eyes closed. Pt is non responsive at this time. Pt appears comfortable with no S/S of distress at this time. Pt's and daughter at bedside. No concerns reported at this time. Spoke with Bedside RN Cydney and discussed case. Palliative Care will remain available.
--- NOTE | 2019-06-14 17:25 | NUR ---
SHIFT SUMMARY- PT IS RESTING COMFORTABLY. FAMILY WAS AT BEDSIDE FOR MOST OF THIS SHIFT. HIS RESPRITORY RATE HAS SLOWED. HE IS WARM TO THE TOUCH. PROVIDED COOL WASHCLOTH. PROVIDING PAIN MEDICATION AND ATAVIN PER FAMILYS REQUESTS.
--- NOTE | 2019-06-14 18:35 | NUR ---
Routine spiritual care note: Spouse alone in room and tearful. Pt appears nearer to end-of-life. Myra responded well to executive assistant to general counsel, spiritual direction and prayer. I will remain available.
--- NOTE | 2019-06-15 04:39 | NUR ---
PIPE FITTER MARINE SUMMARY NO ACUTE CHANGES. PT CONTINUES ON COMFORT CARE MEASURES. MEDICATED WITH ATIVAN AND ROXANOL PERIODICALLY PER EMAR. PT SEEMS MORE RELAXED TONIGHT AND SEEMS VERY COMFORTABLE HE SLEEPS. WILL CONTINUE TO MONITOR UNTIL DAY SHIFT RN ASSUMES CARE.
--- NOTE | 2019-06-15 11:00 | NUR ---
Comfort care: Family is at bedside. Pt appears comfortable. Reviewed with nursing. Pt has lost IV site today and may need alternate route for ativan. He has had a recent dose. Will follow up to see if pharmacy has sublingual ativan available. Will recheck symptoms later in the day.
--- NOTE | 2019-06-15 18:41 | NUR ---
SHIFT SUMMARY- PT SLEPT MUCH OF THIS SHIFT. WE PROVIDED A BED BATH. MEDICATED PER MAY. AND DAUGHTER AT BEDSIDE THOUGHT MUCH OF THIS SHIFT.
--- NOTE | 2019-06-16 07:08 | NUR ---
SHIFT SUMMARY PT SLEPT THROUGH THE NIGHT. ONLY ROUSING DURING POSITOIN CHANGES. MEDICATED FOR PAIN AND SECRETIONS THIS NIGHT. APPEARS COMFORTABLE. REPORT TO ONCOMING RN.
--- NOTE | 2019-06-16 14:48 | NUR ---
PT REQUESTING PAIN MEDS FOR PT PT REQUESTING THAT PT RECIEVE 20MG OF MORPHINE EVERY HOUR WHETHER THE PT IS AWAKE OR NOT. PT IS CONCERNED THAT PT IS NOT HAVING ADEQUATE PAIN RELIEF. THIS FABRIC LAY OUT WORKER PTS COMFORT AND FOUND THE PT TO APPEAR COMFORTABLE THIS AM. PT DISAGREES WITH PT COMFORT AND IS MAKING THIS RECCOMENDATION FOR PAIN MEDS. PAIN MEDS GIVENT TO PT PER REQUEST. PT EDUCATED ON COMFORT CARE ASSESSMENTS AND TREATING ON AN " NEEDED" BASIS. PT STATES "THIS IS UNACCEPTABLE" AND NEEDS TO BE HOURLY. NURSE NOTIFY PLACED FOR OTHER RNS TO SEE REQUEST.
--- NOTE | 2019-06-16 18:12 | NUR ---
SHIFT SUMMARY PT RESTING IN BED WITH FAMILY AT BEDSIDE. PT SLEEPING. NO PHYSICAL SIGNS OF PAIN OBSERVED EXCEPT WITH REPOSITIONS. PT APPEARS COMFORTABLE AT THIS TIME. INCREASE IN PAIN MEDICATION ADMINISTRATION PER FAMILY REQUEST.
--- NOTE | 2019-06-16 19:33 | NUR ---
met with to review plan for tuesday. She states secretions are less and he is progressing.
--- NOTE | 2019-06-16 19:40 | NUR ---
Comfort Measures: Pt is resting comfortably. Reviewed medications. Spoke with nurse, Freddy. Family has wanted nursing staff to medicate with 20mg roxanol q1 hour, regardless of nursing assessment. Reviewed. Freddy reports premedication prior to turning has been adequate pain control last night during management professional. Ativan is also a helpful medication to keep pts comfortable. Assessment q 1 hour as protocol for comfort patients, medication is ordered PRN and not scheduled. Pt is in actively dying phase. He is having audible secretions. Atropine is being used, scopolomine patch is a good addition to help control this symptom. Pt appears very comfortable at this time. No other concerns from nursing. Will remain available.
--- NOTE | 2019-06-17 07:17 | NUR ---
SHIF SUMMARY NO ACUTE CHANGES NOTED WITH PT THOUGH THE NIGHT. REPOSTIONED THROUGHOUT THE NIGHT. MEDICATED PRN FOR COMFORT. APPEARS COMFORTABLE AT SHIFT CHANGE.
--- NOTE | 2019-06-17 07:58 | NUR ---
BEDBATH: BEDBATH COMPLETED. FRESH LINENS. ORAL CARE COMPLETED.
--- NOTE | 2019-06-17 08:38 | NUR ---
PT TRANSFERED PT TRANSFERED TO 339. PT INFORMED. REPORT GIVEN TO ANAHY Loza RN.
--- NOTE | 2019-06-17 08:41 | NUR ---
RECIEVED PATIENT FROM SANJU BROWN. PATIENT IS RESTING PEACEFULLY MOANS OUT WITH AN EXHALE BREATHE WHILE ASLEEP. HE APPEARS COMPLETELY COMFORTABLE. PER THE FAMILY CONCERNS HE IS RECIEVING THE ROXANOL PRN, THEY WOULD PREFER EVERY HOUR, REGARDLESS. THIS RN WILL CONTINUE TO ASSESS AND MEDICATE TO COMFORT. AT THIS TIME HE IS MAKING OCCASSIONAL LOUD MOANS WITH BREATHE. REPOSITIONING FOR COMFORT.
--- NOTE | 2019-06-17 09:43 | NUR ---
REPOSITIONED TO R SIDE. MEDICATED PER EMAR. NO ACUTE CHANGES NOTED.
--- NOTE | 2019-06-17 10:59 | NUR ---
AT BEDSIDE REQUESTING PAIN MEDICATION TO BE GIVEN EVERY HOUR FOR HER . MEDICATED WITH REPOSITIONING. AT THIS TIME PATIENT RESTING PEACEFULLY. MOANING/DEEP SIGHS NOT NOTED. BREATHING EQUAL AND UNLABORED. APPEARS COMFORTABLE.
--- NOTE | 2019-06-17 12:27 | NUR ---
STATED HIS BREATHING HAS INCREASED AND HE SEEMED MORE "UNCOMFORTABLE" MEDICATED PER EMAR. REFUSED REPOSITIONING.
--- NOTE | 2019-06-17 15:34 | NUR ---
SUPPOSITORY TYLENOL GIVEN. REPOSITIONED. MEDICATED FOR HEAVY BREATHING WITH SIGHS.
--- NOTE | 2019-06-17 18:20 | NUR ---
SHIFT SUMMARY PATIENT IS COMFORTABLE. FAMILY AT BEDSIDE. REPOSITIONED PRN. CONTINUES TO HAVE DEEP BREATHES, APPEARS TO BE WITH LONGER PAUSES.
--- NOTE | 2019-06-18 03:56 | NUR ---
PT. APPEARS TO BE RESTING COMFORTABLY IN BED. WILL CONT TO MONITOR.
--- NOTE | 2019-06-18 05:53 | NUR ---
SHIFT SUMMARY- PT. ON COMFORT CARE. ROXANOL GIVEN PRN PER FAMILY REQUEST. PT. APPEARED TO HAVE RESTED COMFORTABLY IN BED T/O THE SHIFT. WILL CONT TO MONITOR.
--- NOTE | 2019-06-18 10:37 | NUR ---
RR 18 AT THIS TIME. PT APPEARS COMFORTBLE AT THIS TIME. NO FAMILY PRESENT IN ROOM AT THIS TIME.
--- NOTE | 2019-06-18 18:58 | NUR ---
SHIFT SUMMARY PT MOSYLY UNRESPONSIVE THIS SHIFT. PT MEDICATED FOR PAIN AND AIR HUNGER PER EMAR AND PER FAMILY REQUEST. PT REPOSITIONED AND TURNED Q2 AND PRN. BED IN LOW POSITION, CALL LIGHT WITHIN REACH.
--- NOTE | 2019-06-18 19:07 | NUR ---
Routine spiritual care note: Provided calm presence and prayer to tearful family. Ashwin is non-responsive, breaths shallow. He appears comfortable and well cared-for by nursing.
--- NOTE | 2019-06-18 19:31 | NUR ---
RESTING QUIETLY ON RIGHT SIDE. NO NOTED ACUTE DISTRESS. CALL LIGHT IN REACH.
--- NOTE | 2019-06-18 21:16 | NUR ---
PT CONTINUES ON COMFORT CARE. RESTING WITH REPOSITIONING - SEE DOC FLOW SHEETS FOR DEETAILS. CALL LIGHT IN REACH
--- NOTE | 2019-06-18 22:18 | NUR ---
WARM TO TOUCH, REPOSITIONED AFTER PAIN MED GIVEN. SHEET ON, NO BLANKETS AT THIS TIME. ROOM TEMP ADJUSTED.
--- NOTE | 2019-06-19 03:41 | NUR ---
RESTING QUIETLY. SEE MAR FOR DETAILS WHEN PAIN MED ADMINISTERED
--- NOTE | 2019-06-19 03:43 | NUR ---
REPOSITIONED. MEDICATED FOR PAIN.
--- NOTE | 2019-06-19 04:19 | NUR ---
REPOSITIONED. RESPS SHALLOW BUT EVEN. CALL LIGHT IN REACH. WILL CONTINUE TO PROVIDE COMFORT CARE.
--- NOTE | 2019-06-19 04:27 | NUR ---
PT REMAINS ON COMFORT CARE, CONTINUE TO REPOSITION PT AND ADMINISTER ANALGESICS PER MD ORDERS - SEE MAR FOR DETAILS WITH MEDS. CURRENTLY RESTING QUIETLY. CALL LIGHT IN REACH.
--- NOTE | 2019-06-19 07:18 | NUR ---
ASSUMED CARE. PT RESTING RIGHT SIDE. EYES OPEN HOWEVER NONRESPONSIVE. HE APPEARS CALM @ THIS TIME. HRR. RESP RATE APPROX 24, SHALLOW, SOMEWHAT IRREG HOWEVER UNLABORED. COOL WASH CLOTHE TO FACE/EYES, ORAL CARE PROVIDED. WILL CONT TO MX & PROVIDE COMFORT CARE.
--- NOTE | 2019-06-19 09:55 | NUR ---
PT CONTINUES NONRESPONSIVE, EYES OPEN/STARING. NO APPARENT S/S PAIN. MACHINE SLAT BASKET MAKER IN FOR REPOSITIONING & STRAIGHTENING BED FOR COMFORT.
--- NOTE | 2019-06-19 09:59 | NUR ---
PALLIATIVE CARE RN IN TO CHECK ON PT., STATE POSSIBLE SYMPTOMS OF PAIN & AIR HUNGER NOTED. ROXANOL 20MG GIVEN FOR RELIEF/CONTROL.
--- NOTE | 2019-06-19 12:26 | NUR ---
PT CONTINUES NONRESPONSIVE. MILD SYMPTOMS OF PAIN, MUSCLE SPASMS NOTED. PRN ROXANOL GIVEN. RESP RATE 24-30, BREATHS SEEM DEEPER, CONTINUE IRREG. ATTENDS DRY, NO URINE OUTPUT SO FAR TODAY. WILL CONTINUE TO MX & PROVIDE COMFORT CARE.
--- NOTE | 2019-06-19 13:06 | NUR ---
PALLIATIVE CARE RN BACK TO CHECK ON PT. STATE HE MAY BE TOO WARM, SUGGEST TYLENOL SUPP, GIVEN. PT CONTINUES TO DEMONSTRATE SOME SPASMS/TWITCHING, SHE STATE MAY BE ANXIETY RELATED, PRN ATIVAN GIVEN. PT REPOSITIONED, INCONT SM URINE VOID, ATTENDS CHANGED. ORAL PROVIDED. HE CONTINUES NONRESPONSIVE, EYES OPEN, STARING. WILL CONTINUE TO MX.
--- NOTE | 2019-06-19 16:00 | NUR ---
PT IN TO VISIT, REQUEST PT NOT POSITIONED SUPINE. REPOSITIONED TO R SIDE. ORAL CARE PROVIDED. MILD LEG TREMORS NOTED, DISCUSSED w , MILD S/S PAIN, PRN ROXANOL GIVEN. SHE STATE HE APPEARS MORE COMFORTABLE. HE CONTINUES NONVERBAL, STARING. RESP RATE CONTINUES 24-30. WILL CONTINUE TO MX & PROVIDE COMFORT CARE.
--- NOTE | 2019-06-19 18:27 | NUR ---
Routine spiritual care visit: Mr. Arteaga was alone in room when I sat with his several times throughout morning/afternoon. Thanks to excellent nursing care, he appears comfortable. Breaths are very shallow. Prayer provided at each visit. I will remain available.
--- NOTE | 2019-06-19 19:37 | NUR ---
PT STOPPED BREATHING WHILE AT BEDSIDE. NURSE ASSESSED PT, 2 RNS (FORD ABARCA RN VERIFIED PT AT 1920) CALL PLACED TO ART DIRECTOR ELÍAS GARCIA WHO ACCEPTED NOTIFICATION. INSTRUCTED TO USE MD WHO SAW HIM TODAY FOR CERTIFICATION ON CERTIFICATE.
--- NOTE | 2019-06-19 19:46 | NUR ---
CALL PLACED TO DR KAUFMAN. NOTIFIED OF PT EXPIRATION AT 1919, AND THAT 2 RNS PRONOUNCED PT. ACCEPTED SAID EXPIRATION AND GAVE VERBAL ACCEPTANCE TO PUT HIS NAME ON CERTIFICATE. CHARGE NURSE AND SUPERVSOR WAS NOTIFIED.
--- NOTE | 2019-06-19 19:57 | NUR ---
Present with spouse and dtr at TO. Provided prayer and bereavement certified alcohol and drug counselor. Made copy of [employer] membership card for chart. Family deeply appreciative of compassionate nursing care.
--- NOTE | 2019-06-19 20:21 | NUR ---
pt having more twitching and labored breathing today and staring off. theraputic time and touch with pt today telling him its ok to go. he is tactile sensitive. Review with nrsing prn med for comfort. repeat visits pt passed this eveing in comfort cahplian in to help family.
--- NOTE | 2019-06-19 20:47 | NUR ---
AND VISITOR AT BEDSIDE. PT RESPS WERE SHALLOW AND SPORATIC.
--- NOTE | 2019-06-19 20:50 | NUR ---
PT AT 1919, WAS AT BEDSIDE. MD NOTIFIED, ACCEPTED 2 RN VERIFICATION, CHARGE NURSE AND NS CUSTOMS VERIFIER NOTIFIED. [employer] NOTIFIED. POST MORTEM CARE DONE. BODY READY FOR REPAIR TECH. REMOVED ALL PERSONAL ITEMS AND TOOK THEM HOME.
--- NOTE | 2019-06-19 21:26 | NUR ---
JERMAN VILLATORO FROM THE [employer] PICKED UP BODY FOR CREMATION. SEE CHARGE NOTATIONS FOR DETAILS.
== END 2019-06-19 17:20 ==
LOC: ER 12:32 → MEDS 12:33
PROVIDERS: Emergency Medicine; Internal Medicine Endocrinology, Diabetes & Metabolism; ADMIT Internal Medicine
DX: M62.59 Muscle wasting and atrophy, not elsewhere classified, multiple sites (principal); G30.9 Alzheimer's disease, unspecified; F02.80 Dementia in other diseases classified elsewhere, unspecified severity, without behavioral disturbance, psychotic disturbance, mood disturbance, and anxiety; E46 Unspecified protein-calorie malnutrition; R62.7 Adult failure to thrive; R50.9 Fever, unspecified; Z66 Do not resuscitate; I10 Essential (primary) hypertension; E78.5 Hyperlipidemia, unspecified; E03.9 Hypothyroidism, unspecified; I73.9 Peripheral vascular disease, unspecified; I65.29 Occlusion and stenosis of unspecified carotid artery; N40.0 Benign prostatic hyperplasia without lower urinary tract symptoms; Z87.891 Personal history of nicotine dependence; Z79.82 Long term (current) use of aspirin; Z79.899 Other long term (current) drug therapy
CPT/HCPCS: 36415; 71045; 80048; 80053; 81001; 84443; 84484; 85025; 87040; 87086; 93005; 93010; 96360; 96361; 96372; 96374; 96376; 97110; 97163; 97166; 97530; 97535; 99285-25; A9270; A9270-GY; G0378; J1650; J2060; J7030